=== PATIENT | female | born 1985 | race Caucasian/White ===

== ENCOUNTER 2020-05-15 04:48 | Emergency (ER) | payer MEDICAID, OTHER ==
[~2020-05-15] VITALS: Ht 162.6 cm; Wt 115.0 kg
--- NOTE | 2020-05-15 04:49 | NUR ---
pt bib remsa after being at work and cutting left thumb on a table saw. pt has a inch long lac on left thumb, cms intact, pulses 2+, gross neuro and sensation intact as well. pt denies significant blood loss, remsa states bleeding was controlled upon arrival to scene. pt resting on anjel garcia, placed on spo2/bp monitoring at this time. at bs. juan pedroza at bs for eval and poc. poli.
--- NOTE | 2020-05-15 04:54 | NUR ---
LAST TDAP UNKNOWN.
[2020-05-15] MEDS ORDERED: LIDOCAINE-MPF 1%, 5ML ONE (04:57)
[2020-05-15] MEDS ORDERED: DIPH,PERTUSS(ACELL),TET VAC/PF 0.5 ML IM-VACC ONE ×2 (04:57→05:00)
[2020-05-15] MEDS ORDERED: BUPIVACAINE 0.25% ONE (04:57)
[2020-05-15] MEDS ORDERED: BUPIVACAINE/PF-EPI 0.25% 1:200K SQ ONE (05:00)
[2020-05-15] MEDS ORDERED: LIDOCAINE-MPF 1%, 5ML INFIL ONE (05:00)
[2020-05-15] MEDS ORDERED: NEOSPORIN OINT. PKT 1 PACKET ONE (05:38)
--- NOTE | 2020-05-15 06:07 | NUR ---
PT RESTING ON GURNEY, IN LOWEST POSITION, CALL LIGHT ON LAP, NAD, DENIES ADDITIONAL NEEDS AT THIS TIME, PROVIDED A WARM BLANKET FOR COMFORT, HAND BANDAGED, WAITING FOR RAD READ, WCTM.
[2020-05-15 06:28] VITALS: BP 123/62
--- NOTE | 2020-05-15 06:29 | NUR ---
Patient given discharge instructions and they have confirmed that they understand the instructions. Patient ambulatory with steady gait. nad, denies additional questions or needs at this time, no personal belongings left in room at time of dc
== END 2020-05-15 06:46 | disposition home or self-care (01) ==
LOC: ED 06:15
DX: S61.012A Laceration without foreign body of left thumb without damage to nail, initial encounter (principal); G89.11 Acute pain due to trauma; W31.2XXA Contact with powered woodworking and forming machines, initial encounter; Y93.89 Activity, other specified; Y92.89 Other specified places as the place of occurrence of the external cause; Y99.0 Civilian activity done for income or pay
CPT/HCPCS: 12002; 90471; 90715; 96372; 99284

== ENCOUNTER 2020-09-22 18:29 | Emergency (ER) | payer MEDICAID, OTHER ==
[~2020-09-22] VITALS: Ht 162.6 cm; Wt 119.7 kg
--- NOTE | 2020-09-22 19:15 | NUR ---
INTERNET APPLICATION DEVELOPER: PT. TO ROOM FROM LOBBY AT THIS TIME.
[2020-09-22] MEDS ORDERED: METOCLOPRAMIDE 5 MG/ML, 2ML IM ONE (19:30)
[2020-09-22] MEDS ORDERED: METOCLOPRAMIDE 5 MG/ML, 2ML ONE (19:50)
--- NOTE | 2020-09-22 20:00 | NUR ---
PATIENT RESTING IN BED IN NAD USING CELL PHONE. REGLAN ADMINISTERED. PATIENT EDUCATED ON THIS MEDICATION PRIOR TO ADMIN. LIGHTS DIMMED PER PATIENT PREFERENCE DUE TO MILD PHOTOPHOBIA. CALL OSULLIVAN IN REACH. PATIENT REPOSITIONED FOR COMOFORT. SAFETY MAINTAINED. WILL CONTINUE TO MONITOR.
--- NOTE | 2020-09-22 20:54 | NUR ---
DISCHARGE INSTRUCTIONS REVIEWED WITH PATIET. NO FURTHER QUESTIONS. SHE IS REQUESTING A WORK NOTE AND THIS WILL BE PROVIDED. REPORTS MATHIS HAS IMPROVED. DENIES NAUSEA. STEADY GAIT IN ROOM. ALL PERSONAL BELONGINGS WITH PATIENT ON DC. NO IV PLACED DURING THIS ER VISIT.
[2020-09-22 20:55] VITALS: BP 123/69
== END 2020-09-22 21:01 | disposition home or self-care (01) ==
LOC: ED 19:55
DX: J32.0 Chronic maxillary sinusitis (principal); R51.9 Headache, unspecified; R20.2 Paresthesia of skin
CPT/HCPCS: 70450; 96372; 99284; J2765

== ENCOUNTER 2020-10-26 10:58 | Emergency (ER) | payer MEDICAID ==
[~2020-10-26] VITALS: Ht 167.6 cm; Wt 118.2 kg
--- NOTE | 2020-10-26 11:29 | NUR ---
PT ambulatory with steady gait back to room with SO at bedside, pt reports L leg and arm numbness that comes and goes for the past two weeks and is only noticable at night. Pt A&O x4, placed on BP and O2 monitors, call light in reach, VSS, given warm blanket and positioned for comfort, NADRehan.
[2020-10-26] MEDS ORDERED: KETOROLAC 30 MG/1 ML IVPush ONE (12:00)
[2020-10-26] MEDS ORDERED: DEXAMETHASONE 4 MG/ML, 1ML IVPush ONE (12:00)
[2020-10-26] MEDS ORDERED: DIPHENHYDRAMINE 50 MG/ML, 1ML ONE (12:00)
[2020-10-26] MEDS ORDERED: SODIUM CHLORIDE 0.9% 1,000ML IVBOLUS ONE (12:00)
[2020-10-26] MEDS ORDERED: METOCLOPRAMIDE 5 MG/ML, 2ML IVPush ONE (12:00)
[2020-10-26] MEDS ORDERED: DIPHENHYDRAMINE 50 MG/ML, 1ML IVPush ONE (12:00)
[2020-10-26] MEDS ORDERED: DEXAMETHASONE 4 MG/ML, 5ML ONE ×2 (12:00→12:51)
[2020-10-26] MEDS ORDERED: KETOROLAC 30 MG/1 ML ONE (12:01)
[2020-10-26] MEDS ORDERED: METOCLOPRAMIDE 5 MG/ML, 2ML ONE (12:01)
--- NOTE | 2020-10-26 12:01 | NUR ---
Pt to CT
--- NOTE | 2020-10-26 12:25 | NUR ---
Pt back from CT
[2020-10-26] MEDS ORDERED: DEXAMETHASONE 4 MG/ML, 1ML ONE (12:49)
[2020-10-26 14:01] VITALS: BP 127/63
== END 2020-10-26 14:05 | disposition home or self-care (01) ==
LOC: ED 12:39
DX: G43.909 Migraine, unspecified, not intractable, without status migrainosus (principal)
CPT/HCPCS: 70551; 96361; 96374; 96375; 99284; J1100; J1200; J1885; J2765; J7030

== ENCOUNTER 2020-12-02 19:57 | Emergency (ER) | payer SELFPAY ==
[~2020-12-02] VITALS: Ht 167.6 cm; Wt 118.8 kg
[2020-12-02 20:17] LABS: BASOPHILS % (AUTO) 0 % (0-1); EOSINOPHILS % (AUTO) 6 % (1-7); LYMPHOCYTES % (AUTO) 33 % (22-44); MEAN CORPUSCULAR HEMOGLOBIN 28.4 pg (27.0-34.8); MEAN CORPUSCULAR HGB CONC 33.2 g/dL (32.4-35.8); MEAN PLATELET VOLUME 8.9 fL (7.4-10.4); MONOCYTES % (AUTO) 9 % (2-9); NEUTROPHILS % (AUTO) 51 % (42-75); PLATELET COUNT 265 x10^3/uL (130-400); RED CELL DISTRIBUTION WIDTH 14.4 % (9.6-15.2)
[2020-12-02 20:20] LABS: MD NO
[2020-12-02 20:29] LABS: ALANINE AMINOTRANSFERASE 42 U/L (12-78); ALBUMIN 3.3 g/dL (3.4-5.0); ANION GAP 7 mmol/L (5-15); CALCIUM 8.6 mg/dL (8.5-10.1); CHLORIDE 110 mmol/L (98-107); CREATININE 0.61 mg/dL (0.55-1.02)
[2020-12-02 20:34] LABS: ALKALINE PHOSPHATASE 99 U/L (45-117); BILIRUBIN,TOTAL 0.3 mg/dL (0.2-1.0); TOTAL PROTEIN 7.6 g/dL (6.4-8.2); TROPONIN I < 0.015 ng/mL (0.000-0.045)
--- NOTE | 2020-12-02 20:44 | NUR ---
unix engineer: Called for pt. Pt not in lobby at this time.
--- NOTE | 2020-12-02 20:46 | NUR ---
fur scraper: Pt in [place]. Will go to room when done.
--- NOTE | 2020-12-02 21:06 | NUR ---
PT STATES HAS HAD PAIN IN THE ABD/UPPER GASTRIC AREA 01/16 THAT STARTED AROUND AT 1500 TODAY. STATES THE PAIN DOES RADIATE AROUND TO THE RIGHT FLANK BUT NOT CURRENTLY. STATES NO N/V.
[2020-12-02 21:51] LABS: MICROSCOPIC NOT IND
[2020-12-02] MEDS ORDERED: MAALOX/HYOSCYAMINE/LIDOCAINE 45 ML BTL ONE (21:52)
[2020-12-02] MEDS ORDERED: MAALOX/HYOSCYAMINE/LIDOCAINE 45 ML BTL PO ONE (22:00)
[2020-12-02 22:46] VITALS: BP 116/73
--- NOTE | 2020-12-02 22:48 | NUR ---
Patient given discharge instructions and they have confirmed that they understand the instructions. Patient ambulatory with steady gait. No questions at time of discharge.
== END 2020-12-02 22:50 | disposition home or self-care (01) ==
LOC: ED 21:57
DX: R10.13 Epigastric pain (principal); R10.10 Upper abdominal pain, unspecified; R94.31 Abnormal electrocardiogram [ECG] [EKG]
CPT/HCPCS: 36415; 71045; 76700; 80053; 81003; 83690; 84484; 85025; 93005; 99285